=== PATIENT | female | born 1955 | race Caucasian/White ===

== ENCOUNTER 2017-11-07 07:17 | Day surgery (SDC) | payer BC ==
[~2017-11-07] VITALS: Ht 175.3 cm; Wt 85.2 kg
[~2017-11-07 07:17] MED LIST: CALCIUM 600 +1 EAC3 PO; FINACEA 15% GEL50 GM TP; FLONASE16 G1 BOTH NARES; KENALOG,ARISTOC80 G1 TP; MAGNESIUM250 MG PO; MOTRIN800 MG PO; ONE DAILY FOR1 EAC1 PO; SYNTHROID100 MCG PO; TOPROL XL50 MG PO
[2017-11-07 08:44] VITALS: BP 165/93
[2017-11-07 17:04] VITALS: BP 144/78
[2017-11-07 20:15] VITALS: BP 136/78
[2017-11-08 00:58] VITALS: BP 141/71
[2017-11-08 04:13] VITALS: BP 120/56
[2017-11-08 07:02] VITALS: BP 130/66
[2017-11-08 07:10] LABS: BASOPHIL (%) 0.3 % (0-1); EOSINOPHIL (%) 0.3 % (0-5); HEMATOCRIT 35.9 % (36.0-46.0); IMMATURE GRANULOCYTE (%) 0.3 % (0.0-0.7); LYMPHOCYTE (%) 20.6 % (15-42); LYMPHOCYTE COUNT 3.2 K/uL (1.0-2.8); MCH 29.6 PG (29.0-34.0); MCHC 32.9 G/DL (30.0-36.0); MCV 90.2 FL (83-99); MONOCYTE (%) 8.8 % (3-12); MONOCYTE COUNT 1.4 K/uL (0-0.8); NEUTROPHIL (%) 69.7 % (45-76); NEUTROPHIL COUNT 10.9 K/uL (1.8-6.4); PLATELET COUNT 280 K/uL (156-360); RBC DIS.WIDTH-SD 39.7 % (39-53); RED BLOOD COUNT 3.98 M/uL (3.80-5.20); WHITE BLOOD COUNT 15.6 K/uL (4.1-10.2)
[2017-11-08 07:18] LABS: HEMOGLOBIN 11.8 G/DL (11.9-15.5)
[2017-11-08 07:33] LABS: CHLORIDE 110 MEQ/L (99-109); CREATININE 0.7 MG/DL (0.6-1.3); GFR ESTIMATE (CALCULATED) > 59 mL/min/; GLUCOSE 100 mg/dL (70-99); POTASSIUM 4.2 MEQ/L (3.7-5.4); SODIUM 142 MEQ/L (136-147); UREA NITROGEN (BUN) 8 mg/dL (9-23)
[2017-11-08 11:00] VITALS: BP 131/72
== END 2017-11-08 13:20 | disposition home or self-care (01) ==
LOC: SDC 07:17 → 2SOUTH 12:05 → ENRESERV 12:23 → SDC 14:24 → ENRESERV 15:31 → SDC 16:17 → 2EAST 16:52
PROVIDERS: Obstetrics & Gynecology Gynecology
PROC: 0T788DZ Dilation of Bilateral Ureters with Intraluminal Device, Via Natural or Artificial Opening Endoscopic (ICD-10-PCS; principal; 2017-11-07)
PROC: 0T7D8ZZ Dilation of Urethra, Via Natural or Artificial Opening Endoscopic (ICD-10-PCS; principal; 2017-11-07)
PROC: 0UT74ZZ Resection of Bilateral Fallopian Tubes, Percutaneous Endoscopic Approach (ICD-10-PCS; principal; 2017-11-07)
PROC: 0UT94ZZ Resection of Uterus, Percutaneous Endoscopic Approach (ICD-10-PCS; principal; 2017-11-07)
PROC: 0UT24ZZ Resection of Bilateral Ovaries, Percutaneous Endoscopic Approach (ICD-10-PCS; principal; 2017-11-07)
DX: N81.4 Uterovaginal prolapse, unspecified (principal); N80.0 Endometriosis of uterus; N72 Inflammatory disease of cervix uteri; D17.79 Benign lipomatous neoplasm of other sites; N35.9 Urethral stricture, unspecified; Z88.2 Allergy status to sulfonamides
CPT/HCPCS: 80048; 85025; 87086; 88307; 94799; C1758; G0378; J0690; J1100; J1170; J1644; J1885; J2001; J2250; J2405; J2765; J2795; J3010; J3475; J7120